=== PATIENT | male | born 1970 | race Caucasian/White ===

== ENCOUNTER 2017-06-08 19:49 | Observation (INO) | payer OTHER ==
[~2017-06-08] VITALS: Ht 182.9 cm; Wt 96.0 kg
--- NOTE | ~2017-06-08 | HP ---
History And Physical [place] [id number] [facility] [place]. [address] NAME: CONNIE COOPER : 72 STATUS : ADM Liam PAT#: [id number] AGE: 47 ADM/REG DATE : 06/08/17 MR#: [id number] REPORT SERV DATE: 06/09/17 DICTATED BY: DATE: REPORT STATUS : Draft TRANSCRIBED BY: MODL DATE: 06/09/17 DATE OF ADMISSION: 06/08/2017 HISTORY OF PRESENT ILLNESS: This is a very pleasant 47-year-old white male with only a history of hyperlipidemia and tobacco use (dip), who came to the emergency department with complaints of shortness of breath, fatigue, and chest pain for about one week. The patient reports the chest pain, which is constant, started about a week ago, intensified on Tuesday and Tuesday. He reports that he went to [facility] in [place], [place], Emergency Department and was prescribed ibuprofen, ProAir, and Prilosec, which he reports were ineffective for his chest pain. He and his do state that EKG and troponins were done at [facility] and were negative. The patient reports his chest pressure occurred first and then he started having sharp chest pain only to his chest, not radiating anywhere, remaining constant and not resolving throughout the entire week and usually occurring with movement. He does report that the chest pain does occur if he is resting in bed or if he is doing any sort of activity, but with movement in bed or with activity makes the chest pain worse. He denies any tenderness to his chest, and he also denies any nausea, vomiting, diaphoresis, edema, lightheadedness, or syncope. The patient denies any change in chest pain or pressure with taking in deep breaths. The patient currently reports his pain is about 4 to 5/10 to his chest that is worse with movement, not tender to touch, pain does not radiate anywhere. The patient denies any other complaints other than his chest pressure and sharp chest pain. The patient also denies any personal history of myocardial infarction, stroke, DVT, or pulmonary embolus. The patient denies any recent fever or chills. No palpitations, no syncopal episodes. Denies PND or orthopnea. PAST MEDICAL HISTORY: 1. Hyperlipidemia. 2. Tobacco use "dip.". SURGICAL HISTORY: None. 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 He is and has two children. He denies smoking cigarettes or cigars, but he does report to dip one can per day and he has been dipping x30 years, gradually increasing the amount. He denies any alcohol or illicit drug use. FAMILY HISTORY: Mother without any cardiac history. Father also without any cardiac history. REVIEW OF SYSTEMS: A 14-point review of systems was performed, significant for HPI. No other contributory diagnosis identified. ALLERGIES: NO KNOWN DRUG ALLERGIES. HOME MEDICATIONS: 1. Aspirin 81 mg p.o. every morning. History And Physical [address] [address] NAME: CONNIE COOPER : 72 STATUS : ADM Liam PAT#: [id number] AGE: 47 ADM/REG DATE : 06/08/17 MR#: [id number] REPORT SERV DATE: 06/09/17 DICTATED BY: DATE: REPORT STATUS : Draft TRANSCRIBED BY: MODL DATE: 06/09/17 2. Crestor 20 mg p.o. at bedtime. 3. Prilosec 30 mg p.o. every morning. 4. Singulair 10 mg p.o. daily p.r.n. allergies. PHYSICAL EXAMINATION: VITAL SIGNS: Blood pressure 105/58, heart rate 63, temperature 98.1, respirations 15, O2 saturation 96% on room air. BMI 28.9. GENERAL: Cooperative, in no apparent distress. HEENT: Head normocephalic, anicteric. Normal EOM. PERRLA. No xanthelasma. Nares patent. Moist mucous membranes. NECK: Trachea midline. No thyromegaly, JVD or bruits. RESPIRATORY: Clear to auscultation bilaterally anterior and posterior. Respirations even and unlabored. No wheezes, rhonchi or crackles. CARDIOVASCULAR: Regular rate and rhythm. No murmur, rub or gallop appreciated. No chest wall tenderness to palpation. ABDOMEN: Soft, nontender, nondistended, normal bowel sounds auscultated throughout. No masses or organomegaly. EXTREMITIES: No peripheral edema. DP/PT and radial pulses palpable bilaterally. No clubbing or cyanosis. SKIN: Warm, dry and intact. Normal turgor. No pallor or cyanosis. NEURO/PSYCH: Alert, oriented x3 with no acute distress. Affect appropriate to current situation. LABORATORY DATA: Troponins x3 have been less than 0.02. Sodium 139, potassium 3.9, BUN 14, creatinine 1.0, GFR 104, glucose 138, calcium 8.4, magnesium 2.5. White blood cell 7.6, hemoglobin 15.8, hematocrit 44.7, platelets 184. INR 1.0. IMAGING AND DIAGNOSTIC STUDIES: Chest x-ray dated 06/09/2017 states normal two-view chest exam. Lungs are clear. Heart size normal. EKG dated 06/09/2017 shows sinus nilesh at 58. environmental monitoring technician shows sinus nilesh at 56. ASSESSMENT AND PLAN: 1. Atypical chest pain. Troponins x3 have been negative. EKG with no acute changes noted. Chest pain the patient reports does occur with movement. Cardiac risk factors are hyperlipidemia and tobacco use (dip). The patient has been observed in the CPOU overnight to rule out myocardial infarction with serial enzymes and serial EKGs. He will be held n.p.o. for exercise treadmill today. If the stress test shows low risk or no ischemia, RN may discharge the patient home with a close followup with the PCP for further testing and management of symptoms if noncardiac related, which the stress test will help determine. If anything is suggestive of ischemia, Cardiology referral will be initiated. 2. Hyperlipidemia. The patient has been started on statin and is taking it at home. We will continue that. 3. Tobacco (dip). I have encouraged cessation. The patient reports understanding. History And Physical [address] [address] NAME: CONNIE COOPER : 72 STATUS : ADM Liam PAT#: [id number] AGE: 47 ADM/REG DATE : 06/08/17 MR#: [id number] REPORT SERV DATE: 06/09/17 DICTATED BY: DATE: REPORT STATUS : Draft TRANSCRIBED BY: DAVID DATE: 06/09/17 EKS/MODL Hoang Ware APN / [id number] CC: Edwige Alvarez, MSN, CONSULTING NURSE-BC Taylor Joaquin M.D.
[2017-06-08 21:01] LABS: BASOPHILS 0.4 %; BASOPHILS ABSOLUTE 0.03 10/3/uL (0.0-0.16); HEMATOCRIT 44.7 % (40.0-51.0); HEMOGLOBIN 15.8 g/dL (13.6-17.8); IMMATURE GRANULOCYTES 0.7 %; IMMATURE GRANULOCYTES ABSOLUTE 0.05 10/3/uL (0.0-0.11); LYMPHOCYTES 29.2 %; LYMPHOCYTES ABSOLUTE 2.22 10/3/uL (0.67-4.30); MEAN CORPUS HGB CONC 35.3 g/dL (32.0-36.0); MEAN CORPUSCULAR HEMOGLOB 29.9 pg (26.0-34.0); MEAN CORPUSCULAR VOLUME 84.7 fL (80-100); MEAN PLATELET VOLUME 9.9 fL (9.2-13.0); MONOCYTES 7.8 %; MONOCYTES ABSOLUTE 0.59 10/3/uL (0.21-1.20); NEUTROPHILS 57.9 %; PLATELET COUNT 184 10/3/uL (150-400); RBC DISTRIBUTION WIDTH 12.2 % (12.0-16.0); RED CELL COUNT 5.28 10/6/uL (4.7-6.1); WHITE BLOOD CELLS 7.6 10/3/uL (4.5-10.5)
[2017-06-08 21:02] LABS: MANUAL DIFF NO %
[2017-06-08 21:09] LABS: PARTIAL THROMBO TIME 33.5 SEC (22.5-37.2); PROTIME (NOT ORD) 13.4 SEC (12.0-14.5)
[2017-06-08 21:18] LABS: BUN (BLOOD UREA NITROGEN) 14 MG/DL (6-23); CALCIUM, SERUM 8.4 MG/DL (8.5-10.4); CHEST PAIN PROFILE TAT 0 Hrs 21 Mins; CHLORIDE, SERUM 107 MMOL/L (96-112); CO2 (CARBON DIOXIDE) 25 MMOL/L (24-34); GFR AFRICAN AMERICAN 104 ML/MIN (>=60); GFR NON AFRICAN AMERICAN 90 ML/MIN (>=60); GLUCOSE, SERUM 138 MG/DL (60-99); POTASSIUM, SERUM 3.9 MMOL/L (3.5-5.3); SODIUM, SERUM 139 MMOL/L (135-148); TROPONIN I <0.02 NG/ML (<0.05)
[2017-06-08] MEDS ORDERED: PRILO PO (23:11)
[2017-06-08] MEDS ORDERED: SINGULAIR1 PO (23:11)
[2017-06-08] MEDS ORDERED: CRESTOR20 MG PO (23:11)
[2017-06-08] MEDS ORDERED: ASAB PO (23:12)
== END 2017-06-09 16:07 | disposition home or self-care (01) ==
LOC: ER 19:49 → CDU2 22:45 → CDU1 22:45 → CDU2 23:12
PROVIDERS: Emergency Medicine
DX: R07.89 Other chest pain (principal); E78.5 Hyperlipidemia, unspecified; Z79.82 Long term (current) use of aspirin; Z79.899 Other long term (current) drug therapy; Z87.891 Personal history of nicotine dependence
CPT/HCPCS: 71020; 80048; 83735; 84484; 85025; 85610; 85730; 93005; 93017; 99285; A9270-GY; G0378